=== PATIENT | female | born 1960 | race Caucasian/White ===

== ENCOUNTER 2018-06-16 05:30 | Observation (INO) | payer OTHER ==
[~2018-06-16] VITALS: Ht 165.1 cm; Wt 77.6 kg
[2018-06-16] VITALS (7 sets, daily range): BP systolic 98–120; BP diastolic 52–54
[~2018-06-16 05:30] MED LIST: ATORVASTATIN CA20 MG PO; LEVOCETIRIZINE D5 MG PO; LEVOTHYROXINE88 MCG PO; LOSARTAN-HCTZ1 EAC2 PO; MONTELUKAST SOD10 MG PO; MULTIVITAMINS1 EAC7 PO; RANITIDINE HCL300 MG PO; VERAPAMIL ER120 MG PO; ZYRTEC10 MG PO
--- OUTSIDE RECORDS SUMMARY | 2018-06-16 05:32 | XMS REPORT | Continuity of Care Document ---
Author Author [facility] Interface Address Unknown Phone Unavailable Problems Problem Status Onset Date Classification Date Reported Comments Source LT SHOULD[facility] Active [facility] [place] LT SHOULD[facility] Active [facility] [place] Medications Medication Details Route Status Patient Instructions Ordering Provider Order Date Source Allergies, Adverse Reactions, Alerts Substance Category Reaction Severity Reaction type Status Date Reported Comments Source Immunizations Immunization Date Given Site Status Last Updated Comments Source Results Order Name Results Value Reference Range Date Interpretation Comments Source Vital Signs Vital Sign Value Date Comments Source Encounters Location Location Details Encounter Type Encounter Number Reason For Visit Attending Provider ADM Date DC Date Status Source [facility] [place] [facility] Patients [id number] Fredrick Shlomo 06/25/2016 07/25/2016 [facility] [place] Procedures Procedure Code Date Perfomer Comments Source
--- OUTSIDE RECORDS SUMMARY | 2018-06-16 05:32 | XMS REPORT | Summary of Care ---
Author Author [facility] Address Unknown Phone Unavailable Encounter [facility]) [id number] Date(s): 06/25/16 - 07/24/16 Critical access hospital Discharge Disposition: Home or Self Care Attending Physician: Fredrick Keenan MD Vital Signs No data available for this section Problem List No data available for this section Allergies, Adverse Reactions, Alerts No data available for this section Medications No data available for this section Results No data available for this section Immunizations No data available for this section Procedures No data available for this section Social History No data available for this section Assessment and Plan No data available for this section
[2018-06-16] MEDS ORDERED: CELECOXIB 200 MG CAP ONE (06:00)
[2018-06-16] MEDS ORDERED: ROPIVACAINE 246.25 MG, EPINEPHRINE HCL 1:1000 0.5 MG, CLONIDINE HCL 0.08 MG, KETOROLAC ... INJ ONE ×5 (06:00)
[2018-06-16] MEDS ORDERED: GABAPENTIN 300 MG CAP ONE (06:00)
[2018-06-16] MEDS ORDERED: DEXAMETHASONE SOD PHOS 10 MG/1 ML VIAL ONE (06:00)
[2018-06-16] MEDS ORDERED: CEFAZOLIN SOD 2 GM/D5W 50ML 50 ML IV ONE (06:01)
[2018-06-16] MEDS ORDERED: BACITRACIN 50,000 UNIT VIAL ONE (06:46)
[2018-06-16] MEDS ORDERED: TRANEXAMIC ACID 1,000 MG/10 ML ML ONE (06:46)
[2018-06-16] MEDS ORDERED: FAMOTIDINE 20 MG TAB PO SCH (07:30)
[2018-06-16] MEDS ORDERED: SODIUM CHLORIDE 0.9% 1000ML 1,000 ML IV SCH (08:56)
[2018-06-16] MEDS: ASPIRIN 325 MG TAB PO SCH ×2 (09:00→17:47)
[2018-06-16] MEDS ORDERED: PROMETHAZINE HCL (IM) 25 MG/ML VIAL INJ PRN (09:00)
[2018-06-16] MEDS ORDERED: DOCUSATE SODIUM 100 MG CAP PO PRN (09:00)
[2018-06-16] MEDS ORDERED: ZOLPIDEM TARTRATE 5 MG TAB PO PRN (09:00)
[2018-06-16] MEDS ORDERED: ONDANSETRON HCL INJ 2 MG/ML VIAL IV PRN (09:00)
[2018-06-16] MEDS ORDERED: CELECOXIB 100 MG CAP PO SCH (09:00)
[2018-06-16] MEDS ORDERED: ACETAMINOPHEN 650 MG SUPP PR PRN (09:00)
[2018-06-16] MEDS ORDERED: HYDROCODONE/APAP 5MG-325MG TAB PO PRN (09:00)
[2018-06-16] MEDS ORDERED: DIPHENHYDRAMINE HCL INJ 50 MG/ML VIAL IM/IV PRN (09:00)
[2018-06-16] MEDS: KETOROLAC TROMETHAMINE 30 MG/ML VIAL IV PRN (10:48)
[2018-06-16] MEDS: HYDROCODONE/APAP 7.5MG-325MG 1 EA TAB PO PRN ×3 (10:49→22:12)
--- NOTE | 2018-06-16 11:11 | Consultation ---
DATE OF CONSULTATION: June 16, 2018 REASON FOR CONSULTATION: Medical management. HISTORY OF PRESENT ILLNESS: This is a 58-year-old white woman who underwent successful elective right total knee replacement today. The patient suffers from severe bilateral knee degenerative joint disease. The patient states that she has a significant amount of pain currently in her right knee. She also has a significant amount of pain in her left nonoperated knee. The patient voices no other complaints. REVIEW OF SYSTEMS GENERAL: Weight has been stable. No fever or chills. HEENT: No headache. No vision changes. CARDIOVASCULAR: No chest pain. No shortness of breath or cough. GI: No nausea, vomiting, diarrhea or constipation. : No UTI symptoms. Stafford catheter was removed in the postanesthesia care unit. NEUROMUSCULAR: Complains of intense pain in her right-sided operated knee and chronic arthritic pain in her left nonoperated knee. ALLERGIES: NO KNOWN DRUG ALLERGIES. HOME MEDICATIONS 1. Atorvastatin 20 mg nightly. 2. Zyrtec 10 mg a day. 3. Levothyroxine 88 mcg a day. 4. Losartan and hydrochlorothiazide 100 and 12.5 once daily. 5. Montelukast 10 mg daily. 6. Multivitamins daily. 7. Ranitidine 300 mg daily. 8. Verapamil 120 mg daily. PAST MEDICAL HISTORY 1. Bilateral knee degenerative joint disease. 2. Hypertension. 3. Hypothyroidism. 4. Sinus allergies. SURGICAL HISTORY: section. FAMILY HISTORY: Hypertension and type-2 diabetes mellitus. 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 She is and lives with her . No history of tobacco use. Drinks alcohol socially. PHYSICAL EXAMINATION GENERAL: She is awake, alert, fully oriented, in no distress. Very pleasant. Her and multiple family members are at bedside. VITAL SIGNS: Blood pressure 180/58, pulse 54, respiratory rate 18, oxygen saturation 98%, temperature 97.6. Height is 5 feet 5 inches, and weight is 170 pounds. BMI is 28. INTEGUMENT: Skin is warm and dry. No pallor, jaundice or diaphoresis. HEENT: Anicteric sclerae with moist mucous membranes. NECK: Supple. CARDIOVASCULAR: Regular rate and rhythm. LUNGS: No rales, no rhonchi, no wheezing. ABDOMEN: Benign. EXTREMITIES: The patient has compression stockings on bilateral lower legs. NEUROLOGIC: Intact. ASSESSMENT 1. Status post right total knee replacement. 2. Advanced left knee degenerative joint disease. 3. Hypertensive heart disease. PLAN 1. Restart home medications. 2. Mobilize with therapy. 3. Pain control. 4. Encourage incentive spirometry use to prevent atelectasis. I would like to thank Dr. Mead for this generous consult. I spent 40 minutes in the care of this patient. Job#: [id number]
[2018-06-16] MEDS: ACETAMINOPHEN 1000 MG/100 ML IV SCH ×3 (12:40→23:18)
[2018-06-16] MEDS: CEFAZOLIN SOD 1 GM VIAL IV SCH ×2 (12:41→22:14)
[2018-06-16] MEDS ORDERED: CEFAZOLIN SOD 1 GM/D5W 50ML 50 ML IV SCH (14:00)
--- NOTE | 2018-06-16 14:44 | Operative Report ---
DATE OF PROCEDURE: June 16, 2018 PREOPERATIVE DIAGNOSIS: Osteoarthritis, right knee. POSTOPERATIVE DIAGNOSIS: Osteoarthritis, right knee. PROCEDURE: Right total knee arthroplasty. INDICATIONS: The patient is a 58-year-old lady who has a long history of pain coming from osteoarthritis in her right knee. She has failed conservative management and would like to proceed with a right total knee replacement. The risks and benefits of the surgery have been discussed. She states she understands and wishes to proceed. DESCRIPTION OF PROCEDURE: The patient was brought to the operating room and placed under general anesthetic. She received a regional block, prophylactic antibiotics and tranexamic acid in the holding area. Her right lower extremity was prepped and draped in a sterile manner. A preoperative time out was performed. The extremity was exsanguinated, and a proximal tourniquet was inflated to 300 mmHg. An anterior approach with a medial parapatellar arthrotomy was performed. Clear synovial fluid was removed from the joint. Soft-tissue releases were performed to bring the knee up into flexion with the patella everted. Marginal osteophytes and meniscal remnants were removed. Throughout the case, a [employer] Persona knee system was used. An extramedullary cutting guide was used to resect the proximal tibia. The cut was referenced off of the affected medial side. The slope was dialed in to match the existing slope. The tibial baseplate was noted to be a size E. The central fin punch was impacted, and attention was directed towards the distal femur. An intramedullary cutting guide was used to resect the distal femur in 5 degrees of valgus. This was noted to be a size number 7. The anterior and posterior cuts were made. External rotation was referenced off of a combination of landmarks including Susana's line, the epicondylar axis and the posterior condyles. Trial reductions were performed. A medial congruent tibial insert with a 10 mm thickness provided appropriate soft-tissue balancing in full extension and 90 degrees of flexion. The patella was resurfaced with a 32 mm diameter patellar button. The thickness was checked before and after and was right at 21 mm. Patellar tracking was noted to be concentric. The trial implants were then all removed. A 100 mL premixed pericapsular MARLI injection was placed. The knee was thoroughly irrigated with a shower-tip pulsatile lavage. The components were then cemented into place using a single mix of Palacos cement preloaded with antibiotics. Care was taken to remove extravasated cement. The wound was further irrigated while the cement cured. The arthrotomy was closed with interrupted #1 Ethibond stitches. The knee was put through flexion and extension to ensure a secure closure. The skin was closed with subcuticular Vicryl and ela. A sterile Aquacel bandage was applied. The patient was extubated and transported to the recovery room in stable condition. Blood loss was minimal. All needle and sponge counts were correct. Job#: [id number]
[2018-06-16] MEDS: CELECOXIB 200 MG CAP PO SCH (17:47)
[2018-06-16] MEDS ORDERED: ACETAMINOPHEN 1000 MG/100 ML IV ONE (19:30)
[2018-06-16] MEDS ORDERED: MIDAZOLAM HCL 2 MG/2 ML VIAL ONE (19:30)
[2018-06-16] MEDS ORDERED: PROPOFOL IV EMULSION 10 MG/ML 20 ML VIAL ONE (19:30)
[2018-06-16] MEDS ORDERED: SEVOFLURANE INHAL SOLN 250 ML PEN BTL ONE (19:30)
[2018-06-16] MEDS ORDERED: DEXAMETHASONE SOD PHOS INJ 4 MG/ML VIAL ONE (19:30)
[2018-06-16] MEDS ORDERED: ONDANSETRON HCL INJ 2 MG/ML VIAL ONE (19:30)
[2018-06-16] MEDS ORDERED: FENTANYL CITRATE/PF 100MCG/2 ML INJ ONE (19:30)
[2018-06-16] MEDS ORDERED: KETOROLAC TROMETHAMINE 30 MG/ML VIAL ONE (19:30)
[2018-06-16] MEDS ORDERED: LIDOCAINE HCL 2% LOCAL INJ 5 ML SDV VIAL INJ ONE (19:30)
[2018-06-16] MEDS ORDERED: LIDOCAINE 2% /EPINEPHRINE 20 ML SDV INJ ONE (19:33)
[2018-06-16] MEDS ORDERED: ROPIVACAINE 0.5% 5 MG/ML 30 ML SDV ONE (19:33)
[2018-06-16] MEDS ORDERED: MONTELUKAST SODIUM 10 MG TAB PO SCH (21:00)
[2018-06-17] VITALS: BP 121/57
[2018-06-17 04:00] VITALS: BP 114/65
[2018-06-17] MEDS: CEFAZOLIN SOD 1 GM VIAL IV SCH (05:24)
[2018-06-17] MEDS: HYDROCODONE/APAP 7.5MG-325MG 1 EA TAB PO PRN ×2 (05:24→12:13)
[2018-06-17 05:32] LABS: BASOPHILS % 0.1 % (0.0-1.0); HEMATOCRIT 29.4 % (34.2-44.1); HEMOGLOBIN 9.5 g/dL (12.0-16.0); LYMPHOCYTES # (AUTO) 1.2 (1.0-3.2); LYMPHOCYTES % 8.6 % (18.0-39.1); MEAN CORPUSCULAR HEMOGLOBIN 30.2 pg (28-32); MEAN CORPUSCULAR HGB CONC 32.3 g/dL (31-35); MEAN CORPUSCULAR VOLUME 93.3 fL (81-99); MONOCYTES % 7.3 % (4.4-11.3); NEUTROPHILS # (AUTO) 11.2 (2.1-6.9); NEUTROPHILS % 83.3 % (38.7-80.0); PLATELET COUNT 245 x10e3/uL (140-360); RED BLOOD COUNT 3.15 x10e6/uL (3.6-5.1); RED CELL DISTRIBUTION WIDTH 13.9 % (11.7-14.4)
[2018-06-17 05:59] LABS: ALANINE AMINOTRANSFERASE 40 IU/L (0-55); ALBUMIN 3.4 g/dL (3.5-5.0); ALBUMIN/GLOBULIN RATIO 1.4 (0.8-2.0); ALKALINE PHOSPHATASE 114 IU/L (40-150); ANION GAP 10.8 mmol/L (8-16); BLOOD UREA NITROGEN 22 mg/dL (7-26); BUN/CREATININE RATIO 27 (6-25); CALCIUM 8.7 mg/dL (8.4-10.2); CARBON DIOXIDE 26 mmol/L (22-29); CHLORIDE 102 mmol/L (98-107); CREATININE, SERUM 0.82 mg/dL (0.57-1.11); EST GLOMERULAR FILTRATION RATE > 60 ML/MIN (60-); GLUCOSE 137 mg/dL (74-118); POTASSIUM 3.8 mmol/L (3.5-5.1); SODIUM 135 mmol/L (136-145)
[2018-06-17] MEDS ORDERED: LEVOTHYROXINE SODIUM 88 MCG TAB PO SCH (06:00)
[2018-06-17] MEDS: ACETAMINOPHEN 1000 MG/100 ML IV SCH (06:00)
[2018-06-17] MEDS: KETOROLAC TROMETHAMINE 30 MG/ML VIAL IV PRN ×2 (07:40→14:18)
[2018-06-17] MEDS: ASPIRIN 325 MG TAB PO SCH (07:42)
[2018-06-17] MEDS: CELECOXIB 200 MG CAP PO SCH (07:42)
[2018-06-17 08:22] VITALS: BP 133/60
[2018-06-17] MEDS ORDERED: MULTIVITAMINS/MINERALS TAB PO SCH (09:00)
[2018-06-17] MEDS ORDERED: NON-FORMULARY MEDICATION (Levocetirizine Dihydrochloride 5 MG) PO SCH (09:00)
[2018-06-17] MEDS ORDERED: HYDROCHLOROTHIAZIDE 25 MG TAB PO SCH (09:00)
[2018-06-17] MEDS ORDERED: VERAPAMIL HCL 120 MG TABSR PO SCH (09:00)
[2018-06-17] MEDS ORDERED: ACETAMINOPHEN 1000 MG/100 ML IV PRN (09:00)
[2018-06-17] MEDS ORDERED: LOSARTAN POTASSIUM 100 MG TAB PO SCH (09:00)
[2018-06-17] MEDS ORDERED: LORATADINE 10 MG TAB PO SCH (09:00)
[2018-06-17 11:15] VITALS: BP 113/56
--- NOTE | 2018-06-17 11:37 | Diagnostic Imaging Report ---
PROCEDURE: X-RAY RIGHT KNEE, ONE OR TWO VIEWS COMPARISON: None. INDICATIONS:POST OP FINDINGS: See conclusion. CONCLUSION: Status post total right knee replacement with surrounding soft tissue swelling, air and ela consistent with recent surgery. No periprosthetic displaced fractures. Dictated by: Jermain Gil M.D. on 06/17/2018 at 11:47 Electronically approved by: Jermain Gil M.D. on 06/17/2018 at 11:47
[2018-06-17] MEDS ORDERED: NORCO 7.5-3251 EACH PO (14:21)
[2018-06-17] MEDS ORDERED: ATORVASTATIN 20 MG TAB PO SCH (21:00)
== END 2018-06-17 15:08 | disposition home health service (06) ==
LOC: OR 05:30 → PACU V 08:58 → MED/SURG 09:54
PROVIDERS: ADMIT Specialist; ATTEND Specialist
DX: M17.11 Unilateral primary osteoarthritis, right knee (principal); K29.70 Gastritis, unspecified, without bleeding; E03.9 Hypothyroidism, unspecified; I11.9 Hypertensive heart disease without heart failure; Z82.3 Family history of stroke; Z82.49 Family history of ischemic heart disease and other diseases of the circulatory system; Z83.3 Family history of diabetes mellitus; D64.9 Anemia, unspecified
CPT/HCPCS: 27447; 36415; 73560; 80053; 85025; 86850; 86900; 86920; 97116 ×2; 97161; 97530; G0378 ×2; G8978; G8979; J0131; J0171; J0690 ×3; J1100 ×2; J1885 ×2; J2001 ×2; J2250; J2405; J2704; J2795; C1713; C1776

== ENCOUNTER → 2018-07-27 | Outpatient (RCR) | payer OTHER ==
[~2018-07-27] MED LIST changes: +NORCO 7.5-3251 EACH PO
== END ==
LOC: PT 07-14 09:03
PROVIDERS: ATTEND Specialist
DX: Z96.651 Presence of right artificial knee joint (principal); Z47.1 Aftercare following joint replacement surgery; M25.661 Stiffness of right knee, not elsewhere classified; M62.81 Muscle weakness (generalized); R26.2 Difficulty in walking, not elsewhere classified

== ENCOUNTER 2018-08-24 16:00 | Outpatient (RCR) | payer OTHER | END 2018-08-27 | LOC: PT 16:00 | PROVIDERS: ATTEND Specialist | DX: Z96.651 Presence of right artificial knee joint (principal); Z47.1 Aftercare following joint replacement surgery; M25.661 Stiffness of right knee, not elsewhere classified; M62.81 Muscle weakness (generalized); R26.2 Difficulty in walking, not elsewhere classified ==

== ENCOUNTER 2018-09-03 16:15 | Outpatient (RCR) | payer OTHER | END 2018-09-24 | LOC: PT 16:15 | PROVIDERS: ATTEND Specialist | DX: Z96.651 Presence of right artificial knee joint (principal); Z47.1 Aftercare following joint replacement surgery ==

== ENCOUNTER 2018-12-28 05:00 | Observation (INO) | payer OTHER ==
[~2018-12-28] VITALS: Ht 167.6 cm; Wt 76.2 kg
[2018-12-28] VITALS (7 sets, daily range): BP systolic 117–132; BP diastolic 56–61
[~2018-12-28 05:00] MED LIST changes: +ALANINE PO
--- OUTSIDE RECORDS SUMMARY | 2018-12-28 05:11 | XMS REPORT ---
Author Author [facility] Address Unknown Phone Unavailable Care Team Providers Care Material Worker Name Role Phone HUMBERTO SIMS Unavailable Unavailable Problems This patient has no known problems. Allergies, Adverse Reactions, Alerts This patient has no known allergies or adverse reactions. Medications This patient has no known medications. Results Test Description Test Time Test Comments Text Results Atomic Results Result Comments KNEE RIGHT 1-2 VIEWS 2018-06-17 11:47:00 [place] [address] Patient Name: DANICA ANDERSON MR #: [id number] : 1960 Age/Sex: 58/F Req #: [id number] [facility] Physician: HUMBERTO SIMS MD Ordered by: HUMBERTO SIMS MD Report #: [id number] Location: MED/SURG Room/Bed: [facility] Procedure: [id number] DX/KNEE RIGHT 1-2 VIEWS Exam Date: 06/16/18 Exam Time: 0900 REPORT STATUS: Signed PROCEDURE: X-RAY RIGHT KNEE, ONE OR TWO VIEWS COMPARISON: None. INDICATIONS: POST OP FINDINGS: See conclusion. CONCLUSION: Status post total right knee replacement with surrounding soft tissue swelling, air and ela consistent with recent surgery. No periprosthetic displaced fractures. Dictated by: Humberto Sewell M.D. on 06/17/2018 at 11:47 Electronically approved by: Humberto Sewell M.D. on 06/17/2018 at 11:47 Dictated By: HUMBERTO SEWELL MD [id number] Transcribed By: WENDY on 06/17/18 1147 COPY TO: HUMBERTO SIMS MD
[2018-12-28] MEDS ORDERED: GABAPENTIN 300 MG CAP ONE (05:45)
[2018-12-28] MEDS ORDERED: CELECOXIB 200 MG CAP ONE (05:45)
[2018-12-28] MEDS ORDERED: DEXAMETHASONE SOD PHOS 10 MG/1 ML VIAL ONE (05:46)
[2018-12-28] MEDS ORDERED: CEFAZOLIN SOD 2 GM/D5W 50ML 50 ML IV ONE (05:54)
[2018-12-28] MEDS ORDERED: VANCOMYCIN HCL 1,000 MG ONE (06:21)
[2018-12-28] MEDS ORDERED: SODIUM CHLORIDE 0.9% 500ML 500 ML ONE (06:21)
[2018-12-28] MEDS ORDERED: TRANEXAMIC ACID 1,000 MG/10 ML ML ONE (06:22)
[2018-12-28] MEDS ORDERED: BACITRACIN 50,000 UNIT VIAL ONE (06:22)
[2018-12-28] MEDS ORDERED: ROPIVACAINE 246.25 MG, EPINEPHRINE HCL 1:1000 1ML 0.5 MG, CLONIDINE HCL 0.08 MG, KETORO... INJ ONE ×5 (06:30)
[2018-12-28] MEDS ORDERED: DIPHENHYDRAMINE HCL INJ 50 MG/ML VIAL IM/IV PRN (08:30)
[2018-12-28] MEDS ORDERED: HYDROCODONE/APAP 5MG-325MG TAB PO PRN (08:30)
[2018-12-28] MEDS ORDERED: DOCUSATE SODIUM 100 MG CAP PO PRN (08:30)
[2018-12-28] MEDS ORDERED: KETOROLAC TROMETHAMINE 30 MG/ML VIAL IV PRN (08:30)
[2018-12-28] MEDS ORDERED: PROMETHAZINE HCL (IM) 25 MG/ML VIAL IM PRN (08:30)
[2018-12-28] MEDS ORDERED: ACETAMINOPHEN 650 MG SUPP PR PRN (08:30)
[2018-12-28] MEDS ORDERED: ONDANSETRON HCL INJ 2MG/ML 2ML 2 MG/ML VIAL IV PRN (08:30)
[2018-12-28] MEDS ORDERED: HYDROMORPHONE 2MG/ML 2 MG/ML ML ONE (08:43)
[2018-12-28] MEDS: ASPIRIN 325 MG TAB PO SCH ×2 (09:00→17:27)
[2018-12-28] MEDS: CELECOXIB 100 MG CAP PO SCH ×2 (09:00→17:27)
--- NOTE | 2018-12-28 09:15 | Diagnostic Imaging Report ---
Left knee radiographs-2 views History: Postoperative. Findings: Status post left total knee arthroplasty and patellar resurfacing with prosthetic components in anatomic alignment. Overlying subcutaneous emphysema and surgical skin ela are present. No evidence of acute fracture or malalignment. IMPRESSION: Status post left total knee arthroplasty in anatomic position. Signed by: Dr. Frank Barriga MD on 12/28/2018 9:11 AM
[2018-12-28] MEDS ORDERED: FENTANYL CITRATE/PF 100MCG/2 ML INJ ONE ×2 (09:19→18:58)
--- NOTE | 2018-12-28 10:00 | NUR ---
ARRIVED VIA STRETCHER FROM PACU, AA&OX3, 2L NC AT THIS TIME, IV TO R HAND INTACT, DTV, FROY WRAP CDI TO LLE, DENIES PAIN AT THIS TIME, JOHN HOSE IN PLACE TO RLE, BILAT FOOT PUMPS, ORIENTED TO ROOM AND CALL LIGHT SYSTEM, CALL LIGHT WITHIN REACH
[2018-12-28] MEDS: ACETAMINOPHEN 1000 MG/100 ML IV SCH ×3 (13:00→23:32)
--- NOTE | 2018-12-28 13:20 | NUR ---
OOB TO BS COMMODE, VOIDING WITHOUT DIFFICULTY
--- NOTE | 2018-12-28 13:48 | NUR ---
AMBULATING IN HALLWAY WITH USE OF WALKER, PHYSICAL THERAPY AT SIDE
[2018-12-28] MEDS: CEFAZOLIN SOD 1 GM/NS 50ML 50 ML IV SCH ×2 (14:00→21:45)
[2018-12-28] MEDS: HYDROCODONE/APAP 7.5MG-325MG 1 EA TAB PO PRN ×2 (14:05→20:39)
[2018-12-28] MEDS ORDERED: SODIUM CHLORIDE 0.9% 1000ML 0 ML ONE (15:27)
[2018-12-28] MEDS ORDERED: SODIUM CHLORIDE 0.9% 1000ML 1,000 ML ONE (15:29)
[2018-12-28] MEDS ORDERED: LIDOCAINE HCL 2% LOCAL INJ 5 ML SDV VIAL INJ ONE (17:36)
[2018-12-28] MEDS ORDERED: ROCURONIUM BROMIDE 10 MG/ML 5ML VIAL ONE (17:36)
[2018-12-28] MEDS ORDERED: GLYCOPYRROLATE INJ 1MG/ 5 ML SYR ONE (17:36)
[2018-12-28] MEDS ORDERED: SUCCINYLCHOLINE 200 MG/10 ML SYR ONE (17:36)
[2018-12-28] MEDS ORDERED: NEOSTIGMINE 5 MG/5ML SYR ONE (17:36)
[2018-12-28] MEDS ORDERED: DEXAMETHASONE SOD PHOS INJ 4 MG/ML VIAL ONE (17:36)
[2018-12-28] MEDS ORDERED: EPHEDRINE SULFATE INJ 50 MG/10 ML SYR ONE (17:36)
[2018-12-28] MEDS ORDERED: ONDANSETRON HCL INJ 2MG/ML 2ML 2 MG/ML VIAL ONE (17:36)
[2018-12-28] MEDS ORDERED: SEVOFLURANE INHAL SOLN 250 ML PEN BTL ONE (17:36)
[2018-12-28] MEDS ORDERED: PROPOFOL IV EMULSION 10 MG/ML 20 ML VIAL ONE (17:36)
--- NOTE | 2018-12-28 17:38 | Operative Report ---
DATE OF PROCEDURE: 12/28/2018 SURGEON: Jermain Mead MD [place] GUIDE: Geo Marti. PREOPERATIVE DIAGNOSIS: Osteoarthritis, left knee. POSTOPERATIVE DIAGNOSIS: Osteoarthritis, left knee. PROCEDURE: Left total knee arthroplasty. INDICATIONS: The patient is a 58-year-old lady, who is about seven months status post right total knee replacement. She has similar findings on the left side and would like to proceed with the left total knee replacement. I have reviewed the risks and benefits. She states she understands and wishes to proceed. DESCRIPTION OF PROCEDURE: The patient was brought to the operating room and placed under general anesthetic. She received prophylactic antibiotics, a regional block and tranexamic acid in the holding area. Her left lower extremity was prepped and draped in a sterile manner. A preoperative time-out was performed. The extremity was exsanguinated and a proximal tourniquet was inflated to 300 mmHg. An anterior approach with a medial parapatellar arthrotomy was performed. Soft tissue releases were performed to bring the knee up into flexion with the patella everted. Meniscal remnants and marginal osteophytes were removed. The anterior cruciate ligament was removed. A [employer] Persona knee system was used throughout the case. An extramedullary cutting guide was used to resect the proximal tibia. The tibial base plate was a size #E. The central fin punch was impacted and attention was directed towards the distal femur. An intramedullary cutting guide was used to resect the distal femur in 5 degrees of valgus and rotation referencing off a combination of landmarks including [place] line, the epicondylar axis and the posterior condyles. The femoral component was a size #8. We elected to use the narrow option. A trial reduction was performed. A 10 mm medial congruent tibial insert provided appropriate soft tissue balancing in full extension and 90 degrees of flexion. The patella was resurfaced with a 32 mm patellar button. The thickness of the patella was checked before and after was right around 22 mm. Patellar tracking was concentric. The trial implants were removed. The knee was thoroughly irrigated with a shower tip pulsatile lavage. A 100 mL premixed pericapsular MARLI injection was placed into the surrounding soft tissue. The components were cemented into place using a single mix of Palacos cement preloaded with antibiotics. Care was taken to remove extravasated cement. The wound was further irrigated while the cement cured. Vancomycin powder 500 mg was then sprinkled into the joint. The arthrotomy was closed with interrupted #1 Ethibond. The skin was closed with subcuticular Vicryl and ela. A sterile bandage was applied. The patient was extubated and transported to the recovery room in stable condition. Blood loss was minimal. All needle and sponge counts were correct. Jermain Mead MD DR/JAVIER /[id number]
--- NOTE | 2018-12-28 17:43 | NUR ---
MD OLIVAS INTO SEE PT, DISCUSSED POC
[2018-12-28] MEDS ORDERED: LIDOCAINE 2% /EPINEPHRINE 20 ML SDV INJ ONE (18:16)
[2018-12-28] MEDS ORDERED: ROPIVACAINE 0.5% 5 MG/ML 30 ML SDV ONE (18:16)
--- NOTE | 2018-12-28 18:28 | Consultation ---
DATE OF CONSULTATION: 12/28/2018 REASON FOR CONSULTATION: Medical management. HISTORY: A 58-year-old white woman, who underwent elective left total knee arthroplasty today. Surgery was performed by Dr. Jermain Mead. The patient has undergone right total knee arthroplasty in May of 2018 here at [facility], which she tolerated quite well. The surgery was also performed by Dr. Jermain Mead at that time. The patient voiced no complaints. In fact, today after surgery, the patient ambulated 250 feet. REVIEW OF SYSTEMS: GENERAL: Weight is stable. No fever or chills. HEENT: No headaches. No visual changes. CARDIOVASCULAR/RESPIRATORY: No chest pain. No shortness of breath or cough. GI: No nausea, vomiting, or constipation. : No dysuria, hematuria. NEUROMUSCULAR: No limb weakness or numbness. HOME MEDICATIONS: 1. Atorvastatin 10 mg at bedtime. 2. Zyrtec 10 mg daily. 3. Levothyroxine 88 mcg daily. 4. Losartan/hydrochlorothiazide 100/12.5 mg once daily. 5. Montelukast 10 mg daily. 6. Multivitamin once daily. 7. Ranitidine 300 mg daily. 8. Verapamil 120 mg daily. PAST MEDICAL HISTORY: 1. Bilateral knee degenerative joint disease. 2. Hypertensive heart disease. 3. Hypothyroidism. 4. Sinus allergies. SURGICAL HISTORY: 1. Right total knee arthroplasty in May 2018. 2. Left total knee arthroplasty today. 3. section. PAST FAMILY HISTORY: Hypertension, type 2 diabetes. 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 The patient is , lives with . No history of tobacco use, but drinks alcohol socially. PHYSICAL EXAMINATION: GENERAL: She is awake, alert, fluent, distress free, pleasant and cooperative with exam. VITAL SIGNS: Blood pressure is 113/56, pulse 68, respiratory rate 18, oxygen saturation 96%. Temp 98.5, height 5 feet 5 inches, weight 170 pounds, BMI 28. INTEGUMENT: Skin is warm and dry. No pallor, jaundice, or diaphoresis. HEENT: Anicteric sclerae. Moist mucous membranes. NECK: Supple. CARDIOVASCULAR: Regular rate and rhythm. LUNGS: No rales. No rhonchi or wheezes. ABDOMEN: Benign. Normal bowel sounds. Nontender. EXTREMITIES: No edema or deformity. Left knee is dressed. NEUROLOGICAL: Intact. DIAGNOSES: 1. Status post left total knee arthroplasty. 2. Hypertensive heart disease. 3. Hypothyroidism. PLAN: 1. Mobilize the patient with physical therapy. 2. Encourage incentive spirometer use to prevent atelectasis. 3. Pain control. 4. Continue oral aspirin twice a day for deep venous thrombosis prophylaxis. 5. Renewed home medications. I would like to thank Dr. Jermain Mead for this generous consult. I spent 35 minutes in the care of this patient. MD AUGUSTUS Alaniz/JAVIER /[id number] MTDD
[2018-12-28] MEDS ORDERED: MIDAZOLAM HCL 2 MG/2 ML VIAL ONE (18:58)
--- NOTE | 2018-12-28 20:00 | NUR ---
pt received. pt assessed. no ss of distress noted. removed cmp at time. pt co pain to left knee. discussed pain mngt poc. verbalized understanding. assisted pt to bathroom and back to bed with rolling walker. gait steady. left knee drsg cdi. will cont to follow poc. call estevez within reach.
[2018-12-28] MEDS ORDERED: NON-FORMULARY MEDICATION (Ranitidine Hcl 300 MG) PO SCH (21:00)
[2018-12-28] MEDS ORDERED: MONTELUKAST SODIUM 10 MG TAB PO SCH (21:00)
[2018-12-28] MEDS ORDERED: ATORVASTATIN 20 MG TAB PO SCH (21:00)
[2018-12-28] MEDS ORDERED: FAMOTIDINE 20 MG TAB PO SCH (21:00)
[2018-12-28] MEDS ORDERED: ZOLPIDEM TARTRATE 5 MG TAB PO PRN (21:00)
--- NOTE | 2018-12-28 21:53 | NUR ---
ice pack applied to left knee. no distress noted. call estevez within reach.
[2018-12-29] VITALS: BP 126/58
[2018-12-29 04:00] VITALS: BP 124/59
--- NOTE | 2018-12-29 04:08 | NUR ---
pt resting. no ss of distress noted. call estevez within reach.
[2018-12-29] MEDS: ACETAMINOPHEN 1000 MG/100 ML IV SCH (05:13)
[2018-12-29] MEDS: CEFAZOLIN SOD 1 GM/NS 50ML 50 ML IV SCH (05:49)
[2018-12-29] MEDS: HYDROCODONE/APAP 7.5MG-325MG 1 EA TAB PO PRN ×3 (05:50→13:22)
--- NOTE | 2018-12-29 05:50 | NUR ---
assisted pt to bsc and back to bed. cpm placed at time. no distress noted. call estevez within reach.
[2018-12-29] MEDS ORDERED: LEVOTHYROXINE SODIUM 88 MCG TAB PO SCH (06:00)
[2018-12-29 06:32] LABS: BASOPHILS % 0.1 % (0.0-1.0); EOSINOPHILS % 0.1 % (0.0-6.0); HEMATOCRIT 28.4 % (34.2-44.1); HEMOGLOBIN 9.5 g/dL (12.0-16.0); LYMPHOCYTES # (AUTO) 1.4 (1.0-3.2); LYMPHOCYTES % 12.5 % (18.0-39.1); MEAN CORPUSCULAR HEMOGLOBIN 31.6 pg (28-32); MEAN CORPUSCULAR HGB CONC 33.5 g/dL (31-35); MEAN CORPUSCULAR VOLUME 94.4 fL (81-99); MONOCYTES % 8.3 % (4.4-11.3); NEUTROPHILS # (AUTO) 8.9 (2.1-6.9); NEUTROPHILS % 78.5 % (38.7-80.0); PLATELET COUNT 261 x10e3/uL (140-360); RED BLOOD COUNT 3.01 x10e6/uL (3.6-5.1); RED CELL DISTRIBUTION WIDTH 12.8 % (11.7-14.4)
[2018-12-29 06:46] LABS: ALANINE AMINOTRANSFERASE 34 IU/L (0-55); ALBUMIN 3.5 g/dL (3.5-5.0); ALBUMIN/GLOBULIN RATIO 1.4 (0.8-2.0); ALKALINE PHOSPHATASE 114 IU/L (40-150); ANION GAP 12.9 mmol/L (8-16); BLOOD UREA NITROGEN 19 mg/dL (7-26); BUN/CREATININE RATIO 25 (6-25); CARBON DIOXIDE 24 mmol/L (22-29); CHLORIDE 103 mmol/L (98-107); CREATININE, SERUM 0.76 mg/dL (0.57-1.11); EST GLOMERULAR FILTRATION RATE > 60 ML/MIN (60-); GLUCOSE 120 mg/dL (74-118); POTASSIUM 3.9 mmol/L (3.5-5.1); SODIUM 136 mmol/L (136-145)
--- NOTE | 2018-12-29 07:00 | NUR ---
pt awake resp even and unlabored this time no distress noted, pt able to make needs known, call light in reach.
--- NOTE | 2018-12-29 08:00 | NUR ---
pt worked with PT tolerated well.
[2018-12-29 08:19] VITALS: BP 149/65
[2018-12-29] MEDS ORDERED: ACETAMINOPHEN 1000 MG/100 ML IV PRN (08:30)
--- NOTE | 2018-12-29 08:47 | NUR ---
assist pt to bedside commode.
[2018-12-29] MEDS: ASPIRIN 325 MG TAB PO SCH (08:59)
[2018-12-29] MEDS ORDERED: MULTIVITAMINS/MINERALS TAB PO SCH (09:00)
[2018-12-29] MEDS ORDERED: NON-FORMULARY MEDICATION (Cetirizine Hcl (Zyrtec) 10 MG) PO SCH (09:00)
[2018-12-29] MEDS ORDERED: LOSARTAN POTASSIUM 100 MG TAB PO SCH (09:00)
[2018-12-29] MEDS ORDERED: LORATADINE 10 MG TAB PO SCH (09:00)
[2018-12-29] MEDS: CELECOXIB 100 MG CAP PO SCH (09:00)
[2018-12-29] MEDS ORDERED: HYDROCHLOROTHIAZIDE 25 MG TAB PO SCH (09:00)
[2018-12-29] MEDS ORDERED: VERAPAMIL HCL 120 MG TABSR PO SCH (09:00)
[2018-12-29] MEDS ORDERED: NON-FORMULARY MEDICATION (Levocetirizine Dihydrochloride 5 MG) PO SCH (09:00)
--- NOTE | 2018-12-29 09:11 | NUR ---
Spoke with Jaed Lopez with [facility]. He states they will be able to see pt tomorrow. Advised pt to call the company if she does not hear from them PHONE: [phone] Spoke with Jimmie at [employer]. He will deliver CPM to pt once she discharges home. Pt to call Jimmie at [phone] Both contact numbers were printed and given to pt. CM contact information also given to pt for any issues.
[2018-12-29 12:38] VITALS: BP 144/65
--- NOTE | 2018-12-29 15:04 | NUR ---
pt discharged home with CPM machine, walker, pt has no c/o pain at this time no distress noted, pt iv site removed at this time, no swelling no redness to site , pt has prescription, pt and family member was educated on medication.
== END 2018-12-29 15:05 | disposition home health service (06) ==
LOC: OR 05:00 → PACU V 08:22 → MED/SURG 09:41
PROVIDERS: ADMIT Specialist; ATTEND Specialist
DX: M17.12 Unilateral primary osteoarthritis, left knee (principal); E11.9 Type 2 diabetes mellitus without complications; Z83.3 Family history of diabetes mellitus; Z82.49 Family history of ischemic heart disease and other diseases of the circulatory system; Z82.3 Family history of stroke; Z96.651 Presence of right artificial knee joint; K21.9 Gastro-esophageal reflux disease without esophagitis; E78.00 Pure hypercholesterolemia, unspecified; E03.9 Hypothyroidism, unspecified; D64.9 Anemia, unspecified; I11.9 Hypertensive heart disease without heart failure
CPT/HCPCS: 27447; 36415; 73560; 80053; 85025; 86850; 86900; 86920; 96365; 96367; 97116 ×2; 97161; 97530; C1713; G0378 ×2; J0131 ×2; J0171; J0690 ×3; J1100 ×2; J1170; J1885; J2001 ×2; J2250; J2405; J2704; J2795; J3370; J3490; J7030; J7040

== ENCOUNTER 2019-01-16 11:15 | Emergency (ER) | payer OTHER ==
[~2019-01-16] VITALS: Ht 167.6 cm; Wt 76.2 kg
[2019-01-16] MEDS ORDERED: DICYCLOMINE HCL 20 MG/2 ML VIAL IM ONE (11:30)
[2019-01-16] MEDS ORDERED: SODIUM CHLORIDE 0.9% 1000ML 1,000 ML IV SCH (11:30)
--- NOTE | 2019-01-16 11:54 | Diagnostic Imaging Report ---
EXAMINATION: CHEST 2 VIEWS INDICATION: ^WEAK/ABD ^[id number] ^1135 COMPARISON: None FINDINGS: PA and lateral views TUBES and LINES: None. LUNGS: Lungs are well inflated. Lungs are clear. There is no evidence of pneumonia or pulmonary edema. PLEURA: No pleural effusion or pneumothorax. HEART AND MEDIASTINUM: The cardiomediastinal silhouette is unremarkable. BONES AND SOFT TISSUES: No acute osseous lesion. Soft tissues are unremarkable. UPPER ABDOMEN: No free air under the diaphragm. IMPRESSION: No acute thoracic abnormality. Signed by: Dr. Simin Woods M.D. on 01/16/2019 11:50 AM
[2019-01-16] MEDS ORDERED: ONDANSETRON HCL INJ 2MG/ML 2ML 2 MG/ML VIAL IV ONE (12:00)
[2019-01-16 12:28] LABS: BASOPHILS # (AUTO) 0.1 (0.0-0.1); BASOPHILS % 0.4 % (0.0-1.0); EOSINOPHILS # (AUTO) 0.1 (0.0-0.4); EOSINOPHILS % 0.5 % (0.0-6.0); HEMATOCRIT 35.5 % (34.2-44.1); HEMOGLOBIN 11.6 g/dL (12.0-16.0); LYMPHOCYTES # (AUTO) 1.2 (1.0-3.2); LYMPHOCYTES % 7.2 % (18.0-39.1); MEAN CORPUSCULAR HEMOGLOBIN 30.4 pg (28-32); MEAN CORPUSCULAR HGB CONC 32.7 g/dL (31-35); MEAN CORPUSCULAR VOLUME 93.2 fL (81-99); MONOCYTES # (AUTO) 0.7 (0.2-0.8); MONOCYTES % 4.1 % (4.4-11.3); NEUTROPHILS # (AUTO) 14.1 (2.1-6.9); NEUTROPHILS % 86.8 % (38.7-80.0); PLATELET COUNT 460 x10e3/uL (140-360); RED BLOOD COUNT 3.81 x10e6/uL (3.6-5.1); RED CELL DISTRIBUTION WIDTH 12.7 % (11.7-14.4)
[2019-01-16 12:50] LABS: ALANINE AMINOTRANSFERASE 32 IU/L (0-55); ALBUMIN 4.6 g/dL (3.5-5.0); ALBUMIN/GLOBULIN RATIO 1.5 (0.8-2.0); ALKALINE PHOSPHATASE 200 IU/L (40-150); ANION GAP 20.4 mmol/L (8-16); BLOOD UREA NITROGEN 21 mg/dL (7-26); BUN/CREATININE RATIO 21 (6-25); CALCIUM 10.2 mg/dL (8.4-10.2); CARBON DIOXIDE 22 mmol/L (22-29); CHLORIDE 100 mmol/L (98-107); CREATINE KINASE 63 IU/L (29-168); CREATININE, SERUM 1.02 mg/dL (0.57-1.11); EST GLOMERULAR FILTRATION RATE 55 ML/MIN (60-); GLUCOSE 114 mg/dL (74-118); POTASSIUM 3.4 mmol/L (3.5-5.1); SODIUM 139 mmol/L (136-145)
[2019-01-16 13:08] LABS: INR 0.98; PARTIAL THROMBOPLASTIN TIME 27.1 seconds (23.8-35.5); PROTHROMBIN TIME 13.5 seconds (11.9-14.5)
[2019-01-16 14:08] LABS: BILIRUBIN,URINE NEGATIVE (NEGATIVE); CLARITY,URINE SL CLOUDY (CLEAR); COLOR,URINE YELLOW (YELLOW); KETONES,URINE NEGATIVE (NEGATIVE); LEUKOCYTE ESTERASE ,URINE TRACE (NEGATIVE); NITRITE,URINE NEGATIVE (NEGATIVE); PROTEIN,URINE DIPSTICK NEGATIVE (NEGATIVE); URINE UROBILINOGEN 0.2 mg/dL (0.2 - 1)
[2019-01-16 14:21] LABS: BACTERIA,URINE FEW /HPF; EPITHELIAL CELLS,URINE FEW /LPF; RBC,URINE 0-5 /HPF (0-5); WBC,URINE (MAN) 0-5 /HPF (0-5)
--- NOTE | 2019-01-16 16:12 | Diagnostic Imaging Report ---
EXAM: CT Abdomen and Pelvis WITH contrast INDICATION: ^ABD LOWER PAIN ^[id number] ^1400 COMPARISON: None. TECHNIQUE: Abdomen and pelvis were scanned utilizing a multidetector helical scanner from the lung base to the pubic symphysis after administration of IV contrast. Coronal and sagittal reformations were obtained. Routine protocol was performed. Scan was performed when during portal venous phase. IV CONTRAST: 100 mL of Isovue-370 ORAL CONTRAST: Water RADIATION DOSE: Total DLP: 401.1 mGy*cm Estimated effective dose: (DLP x 0.015 x size factor) mSv COMPLICATIONS: None FINDINGS: LINES and TUBES: None. LOWER THORAX: Unremarkable HEPATOBILIARY: No focal hepatic lesions. No biliary ductal dilation. GALLBLADDER: No radio-opaque stones or sludge. No wall thickening. SPLEEN: No splenomegaly. PANCREAS: No focal masses or ductal dilatation. ADRENALS: No adrenal nodules KIDNEYS/URETERS: Kidneys enhance symmetrically. Mild right hydroureteronephrosis without visualized masses or calcified stones or surrounding edema. No hydroureteronephrosis on the left. No cystic or solid mass lesions. No stones. GI TRACT: No abnormal distention, wall thickening, or evidence of bowel obstruction. Appendix is normal. PELVIC ORGANS/BLADDER: Unremarkable. LYMPH NODES: No lymphadenopathy. VESSELS: Noncalcified plaque in the proximal SMA, 2.1 cm from its origin results in at least moderate to severe stenosis (60-70%). Distal branches appear patent. The abdominal aorta and pelvic arteries are normal in caliber and associated with moderate scattered atherosclerotic calcifications. No aneurysm. PERITONEUM / RETROPERITONEUM: No free air or fluid. BONES: Moderate degenerative changes at L5-S1. SOFT TISSUES: Unremarkable. IMPRESSION: 1. Mild right hydroureteronephrosis without visualized calcified stones or surrounding fat stranding may be chronic. 2. 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 Correlate with type of abdominal pain. If clinical concern for mesenteric ischemia, recommend vascular consultation and consider CTA abdomen for better evaluation of the mesenteric arteries. 3. No CT findings in the bowel to suggest ischemia. Signed by: Dr. Simin Woods M.D. on 01/16/2019 4:09 PM
[2019-01-16 17:15] VITALS: BP 141/63
[2019-01-16] MEDS ORDERED: SODIUM CHLORIDE 0.9% 50ML 50 ML ONE (20:35)
[2019-01-16] MEDS ORDERED: IOPAMIDOL 370 MG/ML 200 ML INFUS..BTL INJ ONE (20:35)
== END 2019-01-16 17:55 | disposition home or self-care (01) ==
LOC: ER 11:15
DX: R10.30 Lower abdominal pain, unspecified (principal); R55 Syncope and collapse; D72.829 Elevated white blood cell count, unspecified; I10 Essential (primary) hypertension; E03.9 Hypothyroidism, unspecified; K21.9 Gastro-esophageal reflux disease without esophagitis; E78.5 Hyperlipidemia, unspecified; Z96.651 Presence of right artificial knee joint
CPT/HCPCS: 36415; 71046; 74177; 80053; 81001; 82550; 82553; 84484; 85025; 85610; 85730; 99284; J0500; J2405; J7030; Q9967

== ENCOUNTER 2019-01-21 14:36 | Outpatient (RCR) | payer OTHER | END 2019-01-24 | LOC: PT 14:36 | PROVIDERS: ATTEND Specialist | DX: Z96.652 Presence of left artificial knee joint (principal); Z47.1 Aftercare following joint replacement surgery ==

== ENCOUNTER 2019-02-23 13:50 | Outpatient (RCR) | payer OTHER | END 2019-02-24 | LOC: PT 13:50 | PROVIDERS: ATTEND Specialist | DX: Z96.652 Presence of left artificial knee joint (principal); Z47.1 Aftercare following joint replacement surgery; M62.81 Muscle weakness (generalized); R26.2 Difficulty in walking, not elsewhere classified ==

== ENCOUNTER 2019-03-22 13:57 | Outpatient (RCR) | payer OTHER | END 2019-03-27 | LOC: PT 13:57 | PROVIDERS: ATTEND Specialist | DX: Z96.652 Presence of left artificial knee joint (principal); Z47.1 Aftercare following joint replacement surgery; M62.81 Muscle weakness (generalized); R26.2 Difficulty in walking, not elsewhere classified | CPT/HCPCS: 97139 ==

== ENCOUNTER → 2021-07-04 | Outpatient (CLI) | payer BC | LOC: MAMMO 13:27 | PROVIDERS: ATTEND Family Medicine | DX: Z12.31 Encounter for screening mammogram for malignant neoplasm of breast (principal); M85.88 Other specified disorders of bone density and structure, other site | CPT/HCPCS: 77067; 77080 ==

== ENCOUNTER → 2023-01-02 | Outpatient (CLI) | payer BC | LOC: MAMMO 15:18 | PROVIDERS: ATTEND Family Medicine | DX: Z12.31 Encounter for screening mammogram for malignant neoplasm of breast (principal) | CPT/HCPCS: 77067 ==

== ENCOUNTER → 2024-07-29 | Outpatient (REF) | payer OTHER | LOC: MAMMO 13:10 | PROVIDERS: ATTEND Family Medicine | DX: Z12.31 Encounter for screening mammogram for malignant neoplasm of breast (principal) | CPT/HCPCS: 77067 ==